=== PATIENT | female | born 1985 | race Caucasian/White ===

== ENCOUNTER 2019-01-21 07:33 | Outpatient (CLI) | payer OTHER | END 2019-01-21 13:35 | disposition home or self-care (01) | LOC: OBS/DEL 07:33 | DX: O41.03X1 Oligohydramnios, third trimester, fetus 1 (principal); O32.9XX0 Maternal care for malpresentation of fetus, unspecified, not applicable or unspecified ==

== ENCOUNTER 2019-02-11 07:29 | Inpatient (IN) | payer OTHER ==
[~2019-02-11] VITALS: Ht 165.1 cm; Wt 3.6 kg
[2019-02-11] MEDS ORDERED: PRENATAL TABLE1 EAC1 PO (08:56)
== END 2019-02-14 12:47 | disposition home or self-care (01) | DRG 788 ==
LOC: OB/GYN 07:29 → LDR 07:29 → O/R 21:10 → OB/GYN 22:53
PROVIDERS: ADMIT Specialist
PROC: 4A1HXCZ Monitoring of Products of Conception, Cardiac Rate, External Approach (ICD-10-PCS; 2019-02-11)
PROC: 10D00Z1 Extraction of Products of Conception, Low, Open Approach (ICD-10-PCS; principal; 2019-02-11 13:45)
DX: O82 Encounter for cesarean delivery without indication (principal); O64.1XX0 Obstructed labor due to breech presentation, not applicable or unspecified; Z3A.40 40 weeks gestation of pregnancy; Z37.0 Single live birth

== ENCOUNTER 2021-06-21 08:23 | Day surgery (SDC) | payer OTHER ==
[~2021-06-21 08:23] MED LIST: PRENATAL TABLE1 EAC1 PO
== END 2021-06-21 17:59 | disposition home or self-care (01) ==
LOC: CIR.AMB 08:23
PROVIDERS: ATTEND Specialist
DX: Z30.432 Encounter for removal of intrauterine contraceptive device (principal); M41.9 Scoliosis, unspecified; Z20.822 Contact with and (suspected) exposure to COVID-19

== ENCOUNTER 2022-09-23 09:45 | Inpatient (IN) | payer OTHER ==
[~2022-09-23] VITALS: Ht 165.1 cm; Wt 3.2 kg
[2022-09-23] MEDS ORDERED: PRENA PO (10:48)
[2022-09-23] MEDS ORDERED: INTEGRA PO (10:48)
[2022-09-23] MEDS ORDERED: ADULT LOW DOSE81 M1 PO (10:49)
[2022-09-27] MEDS ORDERED: SOD FER GL62.5 MG/5 (08:24)
[2022-09-27] MEDS ORDERED: INTEGRA PLUS C1 EAC1 (08:24)
[2022-09-27] MEDS ORDERED: INTEGRA PLUS C1 EACH (08:27)
[2022-09-27] MEDS ORDERED: PRENATAL + DHA1 EAC1 (08:30)
== END 2022-09-28 14:46 | disposition home or self-care (01) | DRG 788 ==
LOC: OB/GYN 09-26 09:45 → O/R 09-26 13:17 → OB/GYN 09-26 15:20
PROVIDERS: ADMIT Specialist; ATTEND Specialist
PROC: 4A1HXCZ Monitoring of Products of Conception, Cardiac Rate, External Approach (ICD-10-PCS; 2022-09-26)
PROC: 10D00Z1 Extraction of Products of Conception, Low, Open Approach (ICD-10-PCS; principal; 2022-09-26 15:45)
DX: O34.211 Maternal care for low transverse scar from previous cesarean delivery (principal); Z3A.39 39 weeks gestation of pregnancy; Z37.0 Single live birth; Z20.822 Contact with and (suspected) exposure to COVID-19